=== PATIENT | female | born 1980 | race Caucasian/White ===

== ENCOUNTER 2018-04-28 10:47 | Inpatient (IN) | payer OTHER ==
[2018-04-28 12:44] LABS: Specific Gravity >= 1.030 (1.005-1.030); Urine Appearance CLOUDY; Urine Bilirubin NEGATIVE (NEG); Urine Blood NEGATIVE (NEG); Urine Color YELLOW; Urine Glucose NEGATIVE (NEG); Urine Protein NEGATIVE (NEG); Urine Specific Gravity >=1.030 (1.005-1.030); Urine Urobilinogen 0.2 mg/dL (0.2-1.0)
[2018-04-28 12:46] LABS: Urine Microscopic Reflex ORDER UMIC
[2018-04-28] MEDS: NA CHLORIDE 0.9% 1,000 ML IV SCH ×2 (12:49→22:51)
[2018-04-28 12:59] LABS: Urine Bacteria <20 /HPF (<20); Urine Culture Reflex Order NOT NEEDED; Urine RBC <5 /HPF (NONE SEEN)
[2018-04-28 13:00] LABS: Urine Mucus 2+ /HPF (NONE SEEN)
[2018-04-28 13:08] LABS: Absolute Lymphocytes (CBC) 1.7 K/uL (0.7-4.9); Absolute Monocytes 0.7 K/uL (0.1-1.3); Absolute Neutrophil 7.4 K/uL (1.8-8.0); Basophils % 0.5 % (0-1.3); Eosinophils % 0.9 % (0-4.4); Hematocrit 39.4 % (36.0-45.0); Lymphocytes % 17.1 % (15.3-44.8); MCH 31.6 pg (27.0-35.0); MCV 91.4 fL (80-100); Monocytes % 6.6 % (3.3-12.3); RBC Red Blood Cell Count 4.31 M/uL (3.86-4.86)
[2018-04-28] MEDS: AMPICILLIN/SULBACT 3 GM in NA CHLORIDE 0.9% 100 ML IVPB SCH ×3 (13:37→23:38)
--- NOTE | 2018-04-28 15:06 | RAD REPORT ---
EXAM DESCRIPTION: [employer] W/Wo Cont04/28/2018 2:43 pm CLINICAL HISTORY: Sinus congestion/ COMPARISON: None. TECHNIQUE: Computed axial tomography of the sinuses were obtained with coronal and sagittal reconstr uction. 50 cc Isovue-[address] scans are performed using dose optimization technique as appropriate and may include automated exposure control or mA/KV adjustment according to patient size. FINDINGS: The maxillary, ethmoid, frontal and sphenoid sinuses are clear. The ostiomeatal complexes are patent. The mastoids are clear. Mild deviation of the nasal septum IMPRESSION: 1. Clear sinuses. 2. Patent ostiomeatal complexes.
--- NOTE | 2018-04-28 15:09 | RAD REPORT ---
EXAM DESCRIPTION: CTOrbit W/Wo04/28/2018 2:43 pm CLINICAL HISTORY: Right eye pain and swelling COMPARISON: None. TECHNIQUE: Computed axial tomography of the orbits were obtained with coronal and sagittal reconstru ction. 50 cc Isovue-[address] scans are performed using dose optimization technique as appropriate and may include automated exposure control or mA/KV adjustment according to patient size. FINDINGS: Mild right preseptal swelling is present. The right globe is normal size and density. The periorbital fat is clear. The extra-ocular muscles, superior ophthalmic vein and optic nerve are norm al size and density. The maxillary, ethmoid, frontal and sphenoid sinuses are clear. The ostiomeatal complexes are patent. The mastoids are clear. The orbital apex is clear. IMPRESSION: Mild right preseptal swelling may indicate a mild cellulitis
--- NOTE | 2018-04-28 16:12 | P.HP ---
Certification for Inpatient Patient admitted to: Observation With expected LOS: <2 Midnights Patient will require the following post-hospital care: None Practitioner: I am a practitioner with admitting privileges, knowledge of patient current condition, hospital course, and medical plan of care. Services: Services provided to patient in accordance with Admission requirements found in Title 42 Section 412.3 of the Code of Federal Regulations Patient History Date of Service: 04/28/18 Primary Care Provider: Dr Mccall Reason for admission: Orbital Cellulitis History of Present Illness: She is a 38-year-old white female with Pmhx of HTN who [facility]. Pt presented with a swollen right upper lid that started Thursday evening. She was seen at Urgent Care and given Moxeza eye drops, but that did not improve her symptoms. Yesterday, she saw an biofuels technology manager at [facility], who started her on Lotemax, but that made her eyelid swelling worse. She states her pain is a little bit improved today. She states she had a sore throat last week for few days that then went away. She denies any meningeal signs, fever, sinus problems or dental infection. Allergies No Known Drug Allergies Allergy (Verified 04/28/18 12:08) Unknown Home Medications: Labetalol HCl [Trandate] 100 mg PO BID 01/01/15 Lisdexamfetamine Dimesylate [Vyvanse] 60 mg PO DAILY 01/01/15 - Past Medical/Surgical History Has patient received pneumonia vaccine in the past: No -: hernia -: twice Past Surgical History: Reviewed- Non-Contributory - Family History Family History: Reviewed- Non-Contributory - Social History Smoking Status: Never smoker Alcohol use: No CD- Drugs: No Caffeine use: Yes Place of Residence: Home Review of Systems 10-point ROS is otherwise unremarkable Physical Examination - Vital Signs Temperature: 98.1 F Blood Pressure: 134/88 Pulse: 87 Respirations: 17 Pulse Ox (%): 97 - Physical Exam General: Alert, In no apparent distress HEENT: Atraumatic, Other (Left eye with Orbital Swelling and Erythema to the White of the eye. Painful EOMI. No drainage noted. ) Neck: Supple, 2+ carotid pulse no bruit, No LAD, Without JVD or thyroid abnormality Respiratory: Clear to auscultation bilaterally, Normal air movement Cardiovascular: Regular rate/rhythm, Normal S1 S2 Gastrointestinal: Normal bowel sounds, No tenderness Musculoskeletal: No tenderness Integumentary: No rashes Neurological: Normal gait, Normal speech, Normal strength at 5/5 x4 extr, Normal tone, Normal affect Lymphatics: No axilla or inguinal lymphadenopathy - Studies Laboratory Data (last 24 hrs) 04/28/18 12:40: WBC 9.9, Hgb 13.6, Hct 39.4, Plt Count 297 Assessment and Plan - Problems (Diagnosis) (1) Orbital cellulitis on left Current Visit: Yes Status: Acute Plan: Orbital Cellulitis with Periseptal Swelling -IV unsyn for now -Opthomology consulted. Reccs appreciated -Orbit and Sinus CT at this time -Monitor closely (2) HTN (hypertension) Current Visit: Yes Status: Chronic Plan: Restart on Labetalol Qualifiers: Hypertension type: essential hypertension Qualified Code(s): I10 - Essential (primary) hypertension Discharge Plan: Home Plan to discharge in: 48 Hours - Advance Directives Does patient have a Living Will: No Does patient have a Durable POA for Healthcare: No - Code Status/Comfort Care Code Status Assessed: Yes Critical Care: No
--- NOTE | 2018-04-28 16:29 | CON ---
History Of Present Illness: She is a 38-year-old white female who presented with a swollen right upper lid that started Thursday evening. She was seen at Urgent Care and given Moxeza eye drops, but that did not improve her symptoms. Yesterday, she saw an professional nursing tutor at [facility], who started her on Lotemax, but that made her eyelid swelling worse. She states her pain is a little bit improved today. She states she had a sore throat last week for few days that then went away. She denies any meningeal signs, fever, sinus problems or dental infection. Allergies: SHE HAS NO KNOWN DRUG ALLERGIES. Past Surgical History: She has no history of any prior surgery. Past Medical History: She has hypertension. Medications: Include labetalol 100 mg b.i.d. Family History: Her brother has glaucoma and her father has diabetes. Social History: She is . She does not smoke and does not drink. Review of Systems: Ears, Nose, Throat: Negative. Cardiovascular: Positive hypertension. Lungs: No difficulty breathing. GI: Negative. : Negative. Musculoskeletal: Negative. Skin: Negative for rashes. Neurologic: Negative. Endocrine: Negative. Hematologic: Negative. Immune: Negative. Psychological: Negative. General: She is alert and oriented x3. Ocular Examination: She has no afferent pupillary defect. She is orthophoric, but has a limited upgaze in her right eye and sees double while looking up. Her confrontation sweeney are full. Her vision with correction is 20/30 in the right eye and 20/20 in the left eye. Her intraocular pressure is 20 in both eyes. Her left eyelids are normal. She has 2 to 3+ edema of the right upper lid. She has normal left lids and conjunctiva. She has 2+ injection diffusely of the right conjunctiva and 2 to 3+ superior injection in the right eye. She has 1 to 2+ chemosis of the conjunctiva. Her cornea is clear without stain. Her anterior chambers are formed without cells. Her iris is round. Her lens is clear. On dilated funduscopic examination, her vitreous is clear. She has no optic disk edema OU. She has 1/10th cupping in each eye. Her macula, vessels and periphery are normal in both eyes. Impression: My impression is that Ms. Cruz has the orbital cellulitis. She is admitted to [facility] by Dr. Ledesma. She is to have blood cultures and the CBC , a CT of the sinuses and orbits with and without contrast, and she is to be started on Augmentin 3 grams q.6 hours IV. I will follow up with the patient tomorrow. YANNA/MASON Voice ID: [id number] Report ID: [id number]
[2018-04-28] MEDS: LABETALOL HCL 100 MG TAB PO SCH (20:27)
[2018-04-28] MEDS ORDERED: LABETALOL HCL 100 MG TAB PO SCH (21:00)
[2018-04-29] MEDS: AMPICILLIN/SULBACT 3 GM in NA CHLORIDE 0.9% 100 ML IVPB SCH ×3 (05:29→17:25)
[2018-04-29] MEDS: LISDEXAMFETAMINE DIMESYLATE 60 MG PO SCH (08:51)
[2018-04-29] MEDS: INDOMETHACIN 25 MG CAP PO SCH ×3 (09:11→20:41)
[2018-04-29] MEDS: LABETALOL HCL 100 MG TAB PO SCH ×2 (09:12→20:41)
[2018-04-29] MEDS: NA CHLORIDE 0.9% 1,000 ML IV SCH ×2 (09:13→20:40)
--- NOTE | 2018-04-29 12:19 | PN ---
History Of Present Illness: Ms. Cruz states that her symptoms have not improved. She feels like her eye is still as swollen as before, and she has pain with right eye movement and double vision when looking up. Medications: Include Augmentin 3 grams IV q 6 hour and labetalol 100 mg b.i.d. Laboratory Data: Review of her laboratory tests showed that the CT showed clear sinuses, periorbital swelling, preseptal swelling, but no involvement of the extraocular muscles or periorbital fat. Her CBC was positive for elevated neutrophil count. She has remained afebrile. On ocular exam, her near vision without correction is 20/25 in the right eye and 20/20 in the left eye. She has 1 to 2+ edema of her right upper lid. The right conjunctiva has 1+ diffuse injection with 2 to 3+ injection superiorly. Her left lid and conjunctiva are within normal limits. Her cornea is clear in both eyes. Anterior chamber and lens are clear in both eyes. Impression: Ms. Cruz has eye pain and erythema of the right eye. The differential includes early orbital cellulitis versus scleritis versus early orbital inflammatory disease; however, topical steroids seem to make the condition worse. Plan: Continue monitoring the patient on Augmentin, and if there is no improvement tomorrow investigate the differential. YANNA/MASON Voice ID: [id number] Report ID: [id number] ISHMAEL
--- NOTE | 2018-04-29 14:16 | P.PN ---
Subjective Date of Service: 04/29/18 Primary Care Provider: Dr Mccall Chief Complaint: Orbital Cellulitis Subjective: Tolerating diet, Ambulating, Improving, Working w/ PT, Doing well Review of Systems 10-point ROS is otherwise unremarkable Physical Examination - Vital Signs Temperature: 98.7 F Blood Pressure: 122/73 Pulse: 80 Respirations: 17 Pulse Ox (%): 97 - Physical Exam General: Alert, In no apparent distress HEENT: Atraumatic, EOMI Neck: Supple, JVD not distended Respiratory: Clear to auscultation bilaterally, Normal air movement Cardiovascular: Regular rate/rhythm, Normal S1 S2 Gastrointestinal: Normal bowel sounds, No tenderness Musculoskeletal: No tenderness Integumentary: No rashes Neurological: Normal speech, Normal tone, Normal affect Lymphatics: No axilla or inguinal lymphadenopathy - Studies Medications List Reviewed: Yes Assessment And Plan - Current Problems (Diagnosis) (1) Orbital cellulitis on left Current Visit: Yes Status: Acute Plan: Orbital Cellulitis with Periseptal Swelling -IV Unasyn for now -Opthomology consulted. Reccs appreciated -Orbit and Sinus CT at this time -Monitor closely (2) HTN (hypertension) Current Visit: Yes Status: Chronic Plan: Restart on Labetalol Qualifiers: Hypertension type: essential hypertension Qualified Code(s): I10 - Essential (primary) hypertension Discharge Plan: Home Plan to discharge in: 48 Hours - Code Status/Comfort Care Code Status Assessed: Yes Critical Care: No
[2018-04-29] MEDS: CIPROFLOXACIN 0.3% ML OPHTH OPTH SCH ×3 (14:53→20:40)
[2018-04-30] MEDS: CIPROFLOXACIN 0.3% ML OPHTH OPTH SCH ×4 (00:32→12:55)
[2018-04-30] MEDS: AMPICILLIN/SULBACT 3 GM in NA CHLORIDE 0.9% 100 ML IVPB SCH ×3 (00:33→12:55)
[2018-04-30 05:21] VITALS: BMI 29.9
[2018-04-30] MEDS: NA CHLORIDE 0.9% 1,000 ML IV SCH ×2 (05:34→15:00)
[2018-04-30] MEDS ORDERED: PANTOPRAZOLE 40MG TABLET PO SCH (06:30)
[2018-04-30] MEDS: INDOMETHACIN 25 MG CAP PO SCH ×2 (08:59→15:21)
[2018-04-30] MEDS: LABETALOL HCL 100 MG TAB PO SCH (08:59)
[2018-04-30] MEDS: LISDEXAMFETAMINE DIMESYLATE 60 MG PO SCH (09:00)
[2018-04-30 10:22] VITALS: O2SAT 95
--- NOTE | 2018-04-30 10:40 | CON ---
History: Ms. Cruz states that her eye feels better today and is less swollen. She still has pa in and double vision when looking up. She is on Augmentin IV q.6 hours. Physical Examination: On ocular examination, her near vision without correction is 20/25 in the right and 20/20 in the left . She has 1+ edema of her right upper lid. There are normal eyelids on her left eye. She has 1 to 2+ diffuse conjunctival injection of the right eye, a normal conjunctiva of the left. Her corneas ar e normal in both eyes. Her anterior chamber and lens are normal in both eyes. Impression: My impression is that Ms. Cruz has signs of orbital edema. It is unclear to me if this is early orbital cellulitis or scleritis and it is unclear if she has improved because of the an tibiotic or initiation of indomethacin. Plan: To discharge her on Augmentin 875 mg over 125 mg q.12 hours for 10 days, indomethacin 25 mg t. i.d. for a month and omeprazole 20 mg daily. She is to follow up with me next Thursday for re-evaluat ion. YANNA/MASON Voice ID: [id number] Report ID: [id number]
[2018-04-30 13:00] VITALS: BP 138/81; TEMP 97.3
--- NOTE | 2018-04-30 14:52 | CON ---
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 The patient was seen by superintendent terminal at [facility] and was sent to the hospital for furthe r investigation. A CT scan showed early signs of cellulitis in periorbital area. The patient has no w currently been on IV antibiotic for her condition with Unasyn and Cipro eyedrops. The patient qian es any headache, nausea, vomiting, chest pain, abdominal pain, constipation, or diarrhea. She has a history of high blood pressure for last 6-7 years and also takes Zantac every now and then for reflux . Past Medical History: As per HPI. Social History: Nonsmoker, nondrinker. 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 Family History: Noncontributory. Medications: Unasyn and Cipro. See MARs for other medications. Allergies: NO KNOWN DRUG ALLERGIES. Review of Systems: A 10-point review was performed. Physical Examination: General: This is a 38-year-old female, sitting in bed, not in any acute cardiopulmonary distress. Vital signs: Temperature 97, pulse 80, respirations 17, blood pressure 128/88. HEENT: Mild swelling noted to the left periorbital region. No erythematous changes. Mild tendernes s. Neck: Supple. No lymphadenopathy. Lungs: Clear to auscultation. Heart: S1, S2. Regular. Abdomen: Soft, nontender. Bowel sounds present. Extremities: No edema. Laboratory Data: Shows WBC 9.9, hemoglobin 13.6, platelets 297. No BMP available at this time. A C T scan shows periorbital cellulitis. Assessment And Plan: Periorbital cellulitis of left eye. Recommend continue IV antibiotic for 3 to 4 weeks and repeat scan after 2 weeks. Continue supportive care and continue current medications. Isha hardin will follow the patient closely. Thank you Dr. Ledesma for the consult. NF/SHABNAML Voice ID: [id number] Report ID: [id number]
--- NOTE | 2018-04-30 16:07 | P.DS ---
Admission Date: 04/28/18 Discharge Date: 04/30/18 Primary Care Provider: Dr Mccall Disposition: ROUTINE DISCHARGE Discharge Condition: GOOD Reason for Admission: Orbital Cellulitis Consultations: Opthomalogy - Problems (1) Orbital cellulitis on left Onset Date: 04/29/18 Current Visit: Yes Status: Acute (2) HTN (hypertension) Onset Date: 04/29/18 Current Visit: Yes Status: Chronic Qualifiers: Hypertension type: essential hypertension Qualified Code(s): I10 - Essential (primary) hypertension Brief History of Present Illness: She is a 38-year-old white female with Pmhx of HTN who is admitted directly from the Opthomology office for Cellulitis. Pt presented with a swollen right upper lid that started Thursday evening. She was seen at Urgent Care and given Moxeza eye drops, but that did not improve her symptoms. Yesterday, she saw an malted milk supervisor at [facility], who started her on Lotemax, but that made her eyelid swelling worse. She states her pain is a little bit improved today. She states she had a sore throat last week for few days that then went away. She denies any meningeal signs, fever, sinus problems or dental infection. Hospital Course: Overall during the hospital stay patient remained stable The patient was admitted to the hospital initially for orbital cellulitis from her sole tacker's office. Patient had started on IV antibiotics here in the hospital. Patient had CT scan of the orbit done. CT scan of the eye was consistent with Sherif septal cellulitis with no other acute abnormality. Patient at that time. On IV antibiotics for total of 24-48 hr. Marked improvement in her symptoms and thus was discharged home under stable condition. Patient was switched over to Augmentin for total of 7 days and was given a refill for her indomethacin along with omeprazole. Patient was asked to follow up with her primary care provider along with her oncologist in about 1 -2 days post discharge. Patient demonstrated understanding and thus was discharged home under stable condition Vital Signs/Physical Exam: Temp Pulse Resp BP Pulse Ox 97.3 F 77 17 138/81 96 04/30/18 12:00 04/30/18 12:00 04/30/18 12:00 04/30/18 12:00 04/30/18 12:00 General: Alert, In no apparent distress HEENT: Atraumatic, PERRLA, EOMI Neck: Supple, JVD not distended Respiratory: Clear to auscultation bilaterally, Normal air movement Cardiovascular: Regular rate/rhythm, Normal S1 S2 Gastrointestinal: Normal bowel sounds, No tenderness Musculoskeletal: No tenderness Integumentary: No rashes Neurological: Normal speech, Normal tone, Normal affect Lymphatics: No axilla or inguinal lymphadenopathy Laboratory Data at Discharge: WBC 9.9 K/uL (4.3-10.9) 04/28/18 12:40 Hgb 13.6 g/dL (12.0-15.0) 04/28/18 12:40 Hct 39.4 % (36.0-45.0) 04/28/18 12:40 Plt Count 297 K/uL (152-406) 04/28/18 12:40 Home Medications: Labetalol HCl [Trandate*] 100 mg PO BID 01/01/15 Lisdexamfetamine Dimesylate [Vyvanse] 60 mg PO DAILY 01/01/15 Amox/Clavulanate [Augmentin 875-125 Tab] 875 mg PO BID #28 tab 04/30/18 Ciprofloxacin HCl [Ciprofloxacin 0.3% Ophth Alice] 1 drops OPTH Q4HR #1 btl Indomethacin [Indocin*] 25 mg PO TID #60 cap 04/30/18 New Medications: Ciprofloxacin HCl [Ciprofloxacin 0.3% Ophth Alice] 1 drops OPTH Q4HR #1 btl Amox/Clavulanate [Augmentin 875-125 Tab] 875 mg PO BID #28 tab Indomethacin [Indocin*] 25 mg PO TID #60 cap Patient Discharge Instructions: Please f.u with Dr Castro in 1 week post discharge. New medication. Augmentin. Indomethcin. Protonix Diet: Regular Activity: Ad kirsten Followup: Dwaine Mccall MD [Primary Care Provider] - Trena Sunshine MD [ACTIVE - CAN ADMIT] - 1 Week
== END 2018-04-30 16:23 | disposition home or self-care (01) | DRG 122 ==
LOC: 2ND 11:10
PROVIDERS: ADMIT Family Medicine; ATTEND Family Medicine
DX: H05.012 Cellulitis of left orbit (principal); I10 Essential (primary) hypertension
CPT/HCPCS: 36415; 70482; 70488; 81003; 81015; 81025; 85025; 87040; 87205; J0295; J0744; J7030; Q9967

== ENCOUNTER 2019-03-17 03:59 | Emergency (ER) | payer OTHER ==
--- NOTE | 2019-03-17 04:18 | ER ---
Nurse's Notes [facility] Name: Tammie Gomez Age: 39 yrs Sex: Female : 1980 Arrival Date: 03/17/2019 Time: 04:02 Bed 24 Private MD: Diagnosis: Other otitis externa, left ear Presentation: 03/17 04:11 Presenting complaint: Patient states: sudden onset L ear pain at 0100 this am. aa1 Transition of care: patient was not received from another setting of care. Onset of symptoms was March 17, 2019 at 01:00. Risk Assessment: Do you want to hurt yourself or someone else? Patient reports no desire to harm self or others. Initial Sepsis Screen: Does the patient meet any 2 criteria? No. Patient's initial sepsis screen is negative. Does the patient have a suspected source of infection? No. Patient's initial sepsis screen is negative. Care prior to arrival: None. 04:11 Method Of Arrival: Ambulatory aa1 04:11 Acuity: BRIANNE 4 aa1 Historical: - Allergies: 04:15 No Known Allergies; aa1 - Home Meds: 04:15 Vyvanse 60 mg oral cap 1 cap once daily [Active]; labetalol 100 mg Oral tab 1 tab 2 aa1 times per day [Active]; - PMHx: 04:15 Hypertension; ADD/ADHD; aa1 - PSHx: 04:15 ; aa1 - Immunization history:: Flu vaccine is not up to date. - Social history:: Smoking status: Patient/guardian denies using tobacco. - Ebola Screening: : No symptoms or risks identified at this time. Screenin:15 Abuse screen: Denies threats or abuse. Denies injuries from another. Nutritional aa1 screening: No deficits noted. Tuberculosis screening: No symptoms or risk factors identified. Fall Risk None identified. Assessment: 04:15 General: Appears in no apparent distress. comfortable, Behavior is calm, cooperative, aa1 appropriate for age. Pain: Complains of pain in left ear Pain currently is 5 out of 10 on a pain scale. Pain began 3 hours ago. Is continuous. Neuro: Level of Consciousness is awake, alert, obeys commands, Oriented to person, place, time, situation. Respiratory: Airway is patent Respiratory effort is even, unlabored, Respiratory pattern is regular, symmetrical. GI: No signs and/or symptoms were reported involving the gastrointestinal system. : No signs and/or symptoms were reported regarding the genitourinary system. EENT: Ear canal reddened on L . Derm: Skin is intact, is healthy with good turgor, Skin is pink, warm \T\ dry. Musculoskeletal: Circulation, motion, and sensation intact. Capillary refill < 3 seconds. 04:24 Reassessment: Patient appears in no apparent distress at this time. Patient is alert, aa1 oriented x 3, equal unlabored respirations, skin warm/dry/pink. Discussed d/c \T\ f/u instructions with pt; denies questions or concerns at this time. Vital Signs: 04:15 BP 137 / 107; Pulse 88; Resp 18; Temp 98.2; Pulse Ox 98% on R/A; Weight 90.72 kg; aa1 Height 5 ft. 7 in. (170.18 cm); Pain 5/10; 04:15 Body Mass Index 31.32 (90.72 kg, 170.18 cm) aa1 ED Course: 04:02 Patient arrived in ED. ag3 04:04 Gordon Wheeler MD is Attending Physician. ps1 04:12 Triage completed. aa1 04:15 Arm band placed on right wrist. aa1 04:15 Patient has correct armband on for positive identification. Bed in low position. Call aa1 light in reach. Pulse ox on. NIBP on. 04:24 Valencia Murphy RN is Primary Nurse. aa1 04:24 No provider procedures requiring assistance completed. Patient did not have IV access aa1 during this emergency room visit. Administered Medications: No medications were administered Outcome: 04:18 Discharge ordered by . ps1 04:24 Discharged to home ambulatory. aa1 04:24 Condition: good 04:24 Discharge instructions given to patient, Instructed on discharge instructions, follow up and referral plans. medication usage, Demonstrated understanding of instructions, follow-up care, medications, Prescriptions given X 1. 04:27 Patient left the ED. aa1 Signatures: Valencia Murphy RN RN aa1 Gordon Wheeler MD MD ps1 Alessandra Rasheed ag3
--- NOTE | 2019-03-17 04:19 | EDPHYS ---
Physician Documentation [facility] Name: Tammie Gomez Age: 39 yrs Sex: Female : 1980 Arrival Date: 03/17/2019 Time: 04:02 Bed 24 Private MD: ED Physician Gordon Wheeler HPI: 03/17 04:12 This 39 yrs old Female presents to ER via Ambulatory with complaints of Ear ps1 Pain. 04:12 patient states that 1am she had worsening ear pain. Patient states that she had small ps1 amount of pain yesterday. No fever. No mastoid tenderness. Not diabetic. Patient uses q-tips frequently. Moderate pain today. No hearing loss.. Historical: - Allergies: 04:15 No Known Allergies; aa1 - Home Meds: 04:15 Vyvanse 60 mg oral cap 1 cap once daily [Active]; labetalol 100 mg Oral tab 1 tab 2 aa1 times per day [Active]; - PMHx: 04:15 Hypertension; ADD/ADHD; aa1 - PSHx: 04:15 ; aa1 - Immunization history:: Flu vaccine is not up to date. - Social history:: Smoking status: Patient/guardian denies using tobacco. - Ebola Screening: : No symptoms or risks identified at this time. ROS: 04:12 Constitutional: Negative for fever, chills, and weight loss, Eyes: Negative for injury, ps1 pain, redness, and discharge, Cardiovascular: Negative for chest pain, palpitations, and edema, Respiratory: Negative for shortness of breath, cough, wheezing, and pleuritic chest pain, Abdomen/GI: Negative for abdominal pain, nausea, vomiting, diarrhea, and constipation. 04:12 ENT: Positive for ear pain, of the left ear. Exam: 04:12 Constitutional: This is a well developed, well nourished patient who is awake, alert, ps1 and in no acute distress. Head/Face: Normocephalic, atraumatic. 04:12 Chest/axilla: Normal chest wall appearance and motion. Nontender with no deformity. No lesions are appreciated. MS/ Extremity: Pulses equal, no cyanosis. Neurovascular intact. Full, normal range of motion. Neuro: Awake and alert, GCS 15, oriented to person, place, time, and situation. Cranial nerves II-XII grossly intact. Sensory grossly intact. 04:12 ENT: External ear(s): are unremarkable, Ear canal(s): erythema, swelling, that is moderate, of the left canal. Vital Signs: 04:15 BP 137 / 107; Pulse 88; Resp 18; Temp 98.2; Pulse Ox 98% on R/A; Weight 90.72 kg; aa1 Height 5 ft. 7 in. (170.18 cm); Pain 5/10; 04:15 Body Mass Index 31.32 (90.72 kg, 170.18 cm) aa1 MDM: 04:18 Patient medically screened. ps1 04:19 Data reviewed: vital signs, nurses notes, and as a result, I will discharge patient. ps1 Counseling: I had a detailed discussion with the patient and/or guardian regarding: the historical points, exam findings, and any diagnostic results supporting the discharge/admit diagnosis, to return to the emergency department if symptoms worsen or persist or if there are any questions or concerns that arise at home. Administered Medications: No medications were administered Disposition: 03/17/19 04:18 Discharged to Home. Impression: Other otitis externa, left ear. - Condition is Stable. - Discharge Instructions: Otitis Externa. - Prescriptions for Ciprodex 0.3- 0.1 % Otic Drops, Suspension - instill 4 drop by OTIC route every 12 hours for 7 days , for ears ONLY; 1 Container. - Medication Reconciliation Form, Thank You Letter, Antibiotic Education, Prescription Opioid Use form. - Follow up: Private Physician; When: As needed; Reason: Recheck today's complaints, Continuance of care, Re-evaluation by your physician. Follow up: Emergency Department; When: As needed; Reason: Fever > 102 F, Worsening of condition. - Problem is new. - Symptoms are unchanged. Signatures: Valencia Murphy RN RN aa1 Gordon Wheeler MD MD ps1 Corrections: (The following items were deleted from the chart) 04:27 04:18 03/17/2019 04:18 Discharged to Home. Impression: Other otitis externa, left ear. aa1 Condition is Stable. Forms are Medication Reconciliation Form, Thank You Letter, Antibiotic Education, Prescription Opioid Use. Follow up: Private Physician; When: As needed; Reason: Recheck today's complaints, Continuance of care, Re-evaluation by your physician. Follow up: Emergency Department; When: As needed; Reason: Fever > 102 F, Worsening of condition. Problem is new. Symptoms are unchanged. ps1
[2019-03-17 04:44] VITALS: BP 137/107; TEMP 98.2; O2SAT 98
== END 2019-03-17 04:27 | disposition home or self-care (01) ==
LOC: ER 03:59
DX: H60.8X2 Other otitis externa, left ear (principal); I10 Essential (primary) hypertension; F90.9 Attention-deficit hyperactivity disorder, unspecified type
CPT/HCPCS: 99283

== ENCOUNTER 2019-12-17 22:38 | Emergency (ER) | payer OTHER ==
[2019-12-17 23:11] LABS: Absolute Lymphocytes (CBC) 2.5 K/uL (0.7-4.9); Basophils % 0.2 % (0-1.3); Lymphocytes % 25.9 % (15.3-44.8); MPV 8.5 fL (7.6-11.3); RBC Red Blood Cell Count 4.04 M/uL (3.86-4.86)
[2019-12-17 23:14] LABS: Protime INR 0.93
[2019-12-17 23:32] LABS: ALT/SGPT 67 U/L (12-78); AST/SGOT 28 U/L (15-37); Albumin 3.5 g/dL (3.4-5.0); Alkaline Phosphatase 53 U/L (45-117); BUN Blood Urea Nitrogen 13 mg/dL (7-18); Bicarbonate 25 mmol/L (21-32); Bilirubin Direct < 0.1 mg/dL (0-0.2); Bilirubin Total 0.2 mg/dL (0.2-1.0); Glucose Level 103 mg/dL (74-106); Magnesium 1.7 mg/dL (1.8-2.4); NT PRO-BNP 43 pg/mL (<125); Potassium 3.9 mmol/L (3.5-5.1); Protein, Total 6.9 g/dL (6.4-8.2); Sodium Level 140 mmol/L (136-145); Troponin (Emerg Dept Use Only) < 0.02 ng/mL (0.0-0.045)
--- NOTE | 2019-12-17 23:45 | ER ---
Nurse's Notes [facility] Name: Tammie Gomez Age: 39 yrs Sex: Female : 1980 Arrival Date: 12/17/2019 Time: 22:40 Bed 20 Private MD: Diagnosis: Chest pain, unspecified Presentation: 12/16 22:50 Chief complaint: Patient states: intermittent substernal chest pain that began months ss ago, but is now more constant. Coronavirus screen: Proceed with normal triage. Patient denies a cough. Patient denies shortness of breath or difficulty breathing. Patient denies measured and/or subjective temperature greater than 100.4F prior to today's visit. Patient denies travel on a cruise ship or to a country the [facility] currently lists as an affected area. Patient denies contact with known and/or suspected case of COVID-19. Ebola Screen: Patient denies exposure to infectious person. Patient denies travel to an Ebola-affected area in the 21 days before illness onset. Initial Sepsis Screen: Does the patient meet any 2 criteria? No. Patient's initial sepsis screen is negative. Does the patient have a suspected source of infection? No. Patient's initial sepsis screen is negative. Risk Assessment: Do you want to hurt yourself or someone else? Patient reports no desire to harm self or others. Onset of symptoms is unknown. 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 - Social history:: Smoking status: Patient denies any tobacco usage or history of. Screenin:00 Abuse screen: Denies threats or abuse. Nutritional screening: No deficits noted. vc Tuberculosis screening: No symptoms or risk factors identified. 23:00 Fall Risk None identified. vc Assessment: 23:00 General: Appears in no apparent distress. comfortable, Behavior is calm, cooperative, vc appropriate for age. Pain: Complains of pain in anterior aspect of left upper chest Pain does not radiate. Pain currently is 6 out of 10 on a pain scale. Quality of pain is described as sharp, Pain began "ON AND OFF FOR A FEW MONTHS". Neuro: Level of Consciousness is awake, alert, obeys commands, Oriented to person, place, time, situation, Appropriate for age. Cardiovascular: Capillary refill < 3 seconds Patient's skin is warm and dry. Rhythm is sinus rhythm. Cardiovascular: Reports chest pain, Denies nausea, palpitations, shortness of breath, vomiting. Respiratory: Airway is patent Respiratory effort is even, unlabored, Respiratory pattern is regular, symmetrical. GI: No signs and/or symptoms were reported involving the gastrointestinal system. : No signs and/or symptoms were reported regarding the genitourinary system. Derm: Skin is intact, is healthy with good turgor. Vital Signs: 22:50 BP 165 / 79; Pulse 79; Resp 15; Temp 97.9(TE); Pulse Ox 99% ; Weight 90.72 kg; Height 5 ss ft. 7 in. (170.18 cm); Pain 5/10; 23:00 BP 161 / 89; Pulse 74; Resp 13; Pulse Ox 98% on R/A; vc 12/17 00:00 BP 140 / 82; Pulse 72; Resp 14; Pulse Ox 98% on R/A; vc 12/16 22:50 Body Mass Index 31.32 (90.72 kg, 170.18 cm) ss ED Course: 12/16 22:40 Patient arrived in ED. bp1 22:41 Cynthia Haynes FNP-C is [facility]. kb 22:41 Brnaden Mazariegos MD is Attending Physician. kb 22:44 Jane Blanca, SHIMON is Primary Nurse. vc 22:51 Triage completed. ss 22:52 Arm band placed on right wrist. ss 23:00 Patient has correct armband on for positive identification. Bed in low position. Call vc light in reach. monitor technician on. Pulse ox on. NIBP on. 23:00 Inserted saline lock: 20 gauge in right antecubital area, using aseptic technique. vc Blood collected. Patient maintains SpO2 saturation greater than 95% on room air. 23:33 XRAY Chest (1 view) In Process Unspecified. EDMS 12/17 00:09 No provider procedures requiring assistance completed. IV discontinued, intact, vc bleeding controlled, No redness/swelling at site. Pressure dressing applied. Administered Medications: No medications were administered Outcome: 12/16 23:44 Discharge ordered by . odilon 12/17 00:09 Discharged to home ambulatory. vc Condition: good Discharge instructions given to patient, Instructed on discharge instructions, follow up and referral plans. Demonstrated understanding of instructions, follow-up care. 00:09 Patient left the ED. vc Signatures: Dispatcher [employer] EDMS Cynthia Haynes, MID WIFE-C Danay Bee RN RN ss Jane Blanca RN RN vc Char Robert
--- NOTE | 2019-12-17 23:45 | EDPHYS ---
Physician Documentation [facility] Name: Tammie Gomez Age: 39 yrs Sex: Female : 1980 Arrival Date: 12/17/2019 Time: 22:40 Bed 20 Private MD: ED Physician Branden Mazariegos HPI: 12/16 23:25 This 39 yrs old Female presents to ER via Ambulatory with complaints of Chest kb Pain. 23:29 The patient or guardian reports chest pain that is located primarily in the substernal kb area. The pain does not radiate. Associated signs and symptoms: The patient has no apparent associated signs or symptoms. The chest pain is described as aching. Duration: The patient or guardian reports multiple episodes, that are intermittent, with no pattern. Modifying factors: The symptoms are alleviated by nothing. the symptoms are aggravated by nothing. Severity of pain: At its worst the pain was mild in the emergency department the pain has resolved. The patient has not experienced similar symptoms in the past. The patient has not recently seen a physician. Pt reports she has had intermittent substernal chest pain for the last few months. today the pain was coming more regularly than it had been so she was concerned. 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 - Social history:: Smoking status: Patient denies any tobacco usage or history of. ROS: 23:24 Constitutional: Negative for fever, chills, and weight loss, Neck: Negative for injury, kb pain, and swelling, Respiratory: Negative for shortness of breath, cough, wheezing, and pleuritic chest pain, Abdomen/GI: Negative for abdominal pain, nausea, vomiting, diarrhea, and constipation, Back: Negative for injury and pain, : Negative for injury, bleeding, discharge, and swelling, MS/Extremity: Negative for injury and deformity, Skin: Negative for injury, rash, and discoloration, Neuro: Negative for headache, weakness, numbness, tingling, and seizure. 23:24 Cardiovascular: Positive for chest pain, Negative for edema, orthopnea, palpitations, paroxysmal nocturnal dyspnea. Exam: 23:14 ECG was reviewed by the Attending Physician. rn 23:24 Constitutional: This is a well developed, well nourished patient who is awake, alert, kb and in no acute distress. Head/Face: Normocephalic, atraumatic. Chest/axilla: Normal chest wall appearance and motion. Nontender with no deformity. No lesions are appreciated. Cardiovascular: Regular rate and rhythm with a normal S1 and S2. No gallops, murmurs, or rubs. Normal PMI, no JVD. No pulse deficits. Respiratory: Lungs have equal breath sounds bilaterally, clear to auscultation and percussion. No rales, rhonchi or wheezes noted. No increased work of breathing, no retractions or nasal flaring. Abdomen/GI: Soft, non-tender, with normal bowel sounds. No distension or tympany. No guarding or rebound. No evidence of tenderness throughout. Skin: Warm, dry with normal turgor. Normal color with no rashes, no lesions, and no evidence of cellulitis. MS/ Extremity: Pulses equal, no cyanosis. Neurovascular intact. Full, normal range of motion. Neuro: Awake and alert, GCS 15, oriented to person, place, time, and situation. Cranial nerves II-XII grossly intact. Motor strength 5/5 in all extremities. Sensory grossly intact. Cerebellar exam normal. Normal gait. Vital Signs: 22:50 BP 165 / 79; Pulse 79; Resp 15; Temp 97.9(TE); Pulse Ox 99% ; Weight 90.72 kg; Height 5 ss ft. 7 in. (170.18 cm); Pain 5/10; 23:00 BP 161 / 89; Pulse 74; Resp 13; Pulse Ox 98% on R/A; vc 12/17 00:00 BP 140 / 82; Pulse 72; Resp 14; Pulse Ox 98% on R/A; vc 12/16 22:50 Body Mass Index 31.32 (90.72 kg, 170.18 cm) ss MDM: 12/16 22:41 Patient medically screened. kb 23:24 Data reviewed: vital signs, nurses notes. Data interpreted: Pulse oximetry: on room air kb is 98 %. Interpretation: normal. 23:44 Counseling: I had a detailed discussion with the patient and/or guardian regarding: the kb historical points, exam findings, and any diagnostic results supporting the discharge/admit diagnosis, lab results, radiology results, the need for outpatient follow up, a family practitioner, to return to the emergency department if symptoms worsen or persist or if there are any questions or concerns that arise at home. 12/16 22:47 Order name: Basic Metabolic Panel; Complete Time: 23:39 kb 12/16 22:47 Order name: CBC with Diff; Complete Time: 23:23 kb 12/16 22:47 Order name: LFT's; Complete Time: 23:39 kb 12/16 22:47 Order name: Magnesium; Complete Time: 23:39 kb 12/16 22:47 Order name: NT PRO-BNP; Complete Time: 23:39 kb 12/16 22:47 Order name: PT-INR; Complete Time: 23:23 kb 12/16 22:47 Order name: Troponin (emerg Dept Use Only); Complete Time: 23:39 kb 12/16 22:47 Order name: XRAY Chest (1 view) kb 12/16 22:47 Order name: EKG; Complete Time: 22:48 kb 12/16 22:47 Order name: Cardiac monitoring; Complete Time: 23:03 kb 12/16 22:47 Order name: EKG - Nurse/Tech; Complete Time: 23:03 kb 12/16 22:47 Order name: IV Saline Lock; Complete Time: 23:03 kb 12/16 22:47 Order name: Labs collected and sent; Complete Time: 23:03 kb 12/16 22:47 Order name: O2 Per Protocol; Complete Time: 23:03 kb 12/16 22:47 Order name: O2 Sat Monitoring; Complete Time: 23:04 kb EC:14 Rate is 66 beats/min. Rhythm is regular. QRS [place] is Normal. SC interval is normal. QRS rn interval is normal. QT interval is normal. No Q waves. T waves are Normal. No ST changes noted. Clinical impression: Normal ECG. Interpreted by me. Reviewed by me. Administered Medications: No medications were administered Disposition: 12/17 02:40 Co-signature as Attending Physician, Branden Mazariegos MD. rn Disposition: 12/17/19 23:44 Discharged to Home. Impression: Chest pain, unspecified. - Condition is Stable. - Discharge Instructions: Nonspecific Chest Pain, [id number]. - Medication Reconciliation Form, Thank You Letter, Antibiotic Education, Prescription Opioid Use form. - Follow up: Emergency Department; When: As needed; Reason: Worsening of condition. Follow up: Private Physician; When: 2 - 3 days; Reason: Recheck today's complaints, Continuance of care, Re-evaluation by your physician. Signatures: Dispatcher [employer] EDMT Cynthia Haynes, MANAGER INTEGRATION-C MANAGER INTEGRATION-Ckb Branden Mazariegos MD MD rn Smirch, Shelby, RN RN ss Calcote, Vanessa, RN RN vc Corrections: (The following items were deleted from the chart) 00:09 12/16 23:44 12/17/2019 23:44 Discharged to Home. Impression: Chest pain, unspecified. vc Condition is Stable. Forms are Medication Reconciliation Form, Thank You Letter, Antibiotic Education, Prescription Opioid Use. Follow up: Emergency Department; When: As needed; Reason: Worsening of condition. Follow up: Private Physician; When: 2 - 3 days; Reason: Recheck today's complaints, Continuance of care, Re-evaluation by your physician. kb
--- NOTE | 2019-12-18 09:09 | RAD REPORT ---
EXAM DESCRIPTION: RAD - Chest Single View - 12/17/2019 11:32 pm CLINICAL HISTORY: CHEST PAIN COMPARISON: December 2014 TECHNIQUE: AP portable chest image was obtained 12/17/2019 11:32 pm . FINDINGS: Lungs are clear. Heart and vasculature are normal. No measurable pleural effusion and no p neumothorax. No acute bony abnormality seen. No acute aortic findings suspected. IMPRESSION: No acute cardiopulmonary process.
== END 2019-12-18 00:09 | disposition home or self-care (01) ==
LOC: ER 22:38
DX: R07.9 Chest pain, unspecified (principal); I10 Essential (primary) hypertension
CPT/HCPCS: 36415; 71045; 80048; 80076; 83735; 83880; 84484; 85025; 85610; 93005; 99285